=== PATIENT | female | born 1965 | race Caucasian/White ===

== ENCOUNTER 2021-10-11 03:46 | Outpatient (CLI) | payer OTHER, SELFPAY ==
[2021-10-11 13:11] LABS: Source Nasal/Nares
[2021-10-11 15:55] LABS: COVID-19 PCR Negative (Negative)
== END 2021-10-11 03:47 | disposition home or self-care (01) ==
LOC: LBO 03:46
PROVIDERS: PCP Family Medicine; Visit Provider Ophthalmology
DX: Z20.822 Contact with and (suspected) exposure to COVID-19 (principal)
CPT/HCPCS: 87635

== ENCOUNTER 2021-10-14 07:00 | Day surgery (SDC) | payer OTHER, SELFPAY ==
[2021-10-14] MEDS: Tropicam./Phenyleph. (1/2.5%) 5 ML BTL OD ×3 (07:27→07:38)
[2021-10-14 07:29] VITALS: BP 116/63; PULSE 78; RESP 16; TEMP 36.5; O2SAT 99
--- NOTE | 2021-10-14 07:33 | W.ANESPRE ---
General Info Date of Service Date Performed: 10/14/21 Height: 5 ft 4 in Weight: 71.8 kg Body Mass Index (BMI): 27.1 Surgical Procedure: Operation Date: 10/14/21 08:40 Proposed Procedures Side Surgeon p Cataract Extraction with IOL Implant Right Tommy Baig MD Meds Allergies and Home Medications Allergies Allergy/AdvReac Type Severity Reaction Status Date / Time No Known Allergies Allergy Unverified 10/14/21 07:25 Home Medication Medication Instructions Recorded clobetasol 1 applic TOPICAL BID PRN 10/11/21 triamcinolone acetonide 1 applic TOPICAL TID PRN 10/11/21 Current Visit Medications: Current Medications Generic Name Dose Route Start Last Admin Trade Name Freq PRN Reason Stop Dose Admin Acetaminophen 1,000 mg 10/14/21 06:00 Acetaminophen 500 Mg Tab PO Q4H PRN PRN Miscellaneous Medication 0 ml 10/14/21 06:00 Prednisolone 1%, Moxifloxacin 0.5%, Nepafenac 0.1% 5ml Btl OD DIRECTED NORAH Miscellaneous Medication 0 ml 10/14/21 06:00 10/14/21 07:27 Tropicam./Phenyleph. (1/2.5%) 5 Ml Btl OD 1 drp DIRECTED NORAH Administration Tetracaine HCl 0 ml 10/14/21 06:00 Tetracaine 0.5% 4 Ml Btl OD DIRECTED NORAH PFSH Active Problems Active Problems: Problem Status Onset Code Astigmatism of right eye H52.201 Posterior subcapsular age-related cataract, right eye H25.041 Medical History Active Problem List Astigmatism of right eye (Acute) Posterior subcapsular age-related cataract, right eye (Acute) Medical History DUB (dysfunctional uterine bleeding) Eczema Onychomycosis Vitamin D deficiency Surgical History Surgical History History of dilation and curettage History of excision of pilonidal cyst History of tubal ligation Hx of section Tobacco Smoking/Tobacco Use Status: Never Alcohol Alcohol Intake: current Alcohol intake frequency: a few times a week Substance Use Substance use type: does not use Vital Signs and Lab Results Vital Signs Most Recent Vital Signs in EMR: Most Recent Vital Signs Temp Pulse Resp BP Pulse Ox 36.5 C 78 16 116/63 99 10/14/21 07:29 10/14/21 07:29 10/14/21 07:29 10/14/21 07:29 10/14/21 07:29 Lab Results Blood Type / Crossmatch: No Data to Display Complete Blood Count: No Data to Display Complete Metabolic Panel: No Data to Display Liver Function Panel: No Data to Display Coagulation Panel: No Data to Display Cardiac Panel: No Data to Display Arterial Blood Gas: No Data to Display Venous Blood Gas: No Data to Display Pancreas Panel: No Data to Display Thyroid Panel: No Data to Display Infectious Disease: Coronavirus (COVID-19)(PCR) Negative (Negative) 10/11/21 11:11 10/11/21 Coronavirus 2019 Source Nasal/Nares 10/11/21 11:11 10/11/21 Blood Cultures: No Data to Display Toxicology Panel: No Data to Display Panel: No Data to Display Anesthesia Assessment and Plan Anesthesia History Personal History: No History of Anesthesia Complications Family History: No Family History of Anesthesia Complications Exercise Tolerance Exercise Tolerance: Metabolic Equivalents>4 Pertinent Negatives Pertinent Negatives: No Symptoms of GERD, No Major Cardiovascular Symptoms or Complaints and No Major Pulmonary Symptoms or Complaints Cardiac & Pulmonary Exam Cardiac Exam: Normal S1/S2 Heart Sounds Pulmonary Exam: Clear Bilateral Breath Sounds Implantable Cardiac Device Does patient have a Pacemaker or an ICD?: No Airway Exam Known Difficult Airway: No Mallampati Class: 1 Mouth Opening: Normal (> 3cm) Thyromental Distance: Greater than 3 cm Neck Range of Motion: Full ROM Neck Circumference: Normal Teeth Condition: Normal Dentition ASA Classification ASA Score: ASA 2 Emergency Case?: No NPO Status NPO Status: NPO Clears >2 hours, Solids >8 hours Status Status: Not Per Patient Anesthesia Plan Resuscitation Status: Full Code Anesthesia Technique: MAC Anesthesia Airway Planned: Natural Airway Monitors Used: Standard Monitors
[2021-10-14 07:53] VITALS: BMI 27.1
[2021-10-14] MEDS: Lidocaine 2% Jelly 6 ML SYR (08:04)
[2021-10-14] MEDS: Tetracaine 0.5% 4 ML BTL OD (08:04)
[2021-10-14] MEDS: Povidone-Iodine Ophth 30 ML BTL (08:04)
[2021-10-14] MEDS: Balanced Salt Soln.-PLUS 500 ML BAG (08:17)
[2021-10-14] MEDS: Duovisc Viscoelastic System EACH 1 EACH (08:17)
[2021-10-14 08:43] VITALS: BP 106/55; PULSE 72; RESP 16; TEMP 36.4; O2SAT 100
--- NOTE | 2021-10-14 08:44 | W.PM.DSUDISC ---
Discharge Plan Disposition Patient Disposition: HOME Condition: Good Discharge Details Attending Provider: Tommy Baig Primary Care Provider: Vivian Murray Home Meds and New Rx's Prescriptions: No Action clobetasol 0.05 % Cream 1 applic TOPICAL BID PRNRF: 0 triamcinolone acetonide 0.1 % Ointment 1 applic TOPICAL TID PRNRF: 0 Discharge Instructions Stand Alone Forms: Post-op Topical Cataract, Eliana Julio (DSU) Discharge Orders Discharge Orders: Discharge Order (Routine); Ordered 10/14/21 Ordered By: Tommy Baig DS: Diagnosis Discharge Diagnosis (1) Astigmatism of right eye: Status: Chronic (2) Posterior subcapsular age-related cataract, right eye: Status: Resolved
--- NOTE | 2021-10-14 08:45 | W.PM.OP ---
Date of service: 10/14/21 Time of Service: 08:45 Operative Note Operative Note DATE OF PROCEDURE: 10/14/21 PRE-OP DIAGNOSIS: Dense posterior subcapsular cataract, right eye With the rule astigmatism, right eye POST-OP DIAGNOSIS: same PROCEDURE: Cataract extraction using phacoemulsification with toric intraocular lens implant, right eye SURGEON: Tommy Baig Refer to Anesthesia Record PATHOLOGY: none sent COMPLICATIONS: None Patient was transported to: same day Patient's condition: stable Implants: Manohar [employer] / [employer] ZCU Toric Intraocular Lens Indications: Progressive decreased vision due to cataract, right eye, with corneal astigmatism Procedure Description: [] CATARACT SURGERY OPERATIVE REPORT PREOPERATIVE DIAGNOSIS: Dense posterior subcapsular cataract, right eye With the rule astigmatism, right eye POSTOPERATIVE DIAGNOSIS: Same OPERATION: Cataract extraction using phacoemulsification with posterior chamber toric intraocular lens implant, right eye. IOL: IOL Java [employer] Developer/Model: [employer] / IGNACIO [employer]ecnis ZCU 300 IOL Power: + 8.5 diopters sphere, 3.0 cylinder IOL Serial Number: [id number] Optic Diameter: 6.0mm Haptic/Overall Diameter: 13.00mm PHACO INFO: Karl [employer] Vision System with OZil and Active Fluidics Cumulative Dispersed Energy (CDE): 3.73 seconds SURGEON: Tommy Baig MD, DORI ANESTHESIA: Monitored Anesthesia Care (MAC), with local sub-tenon's anesthetic infiltration COMPLICATIONS: None SPECIMENS: None INDICATIONS FOR PROCEDURE: The patient is a 56-year-old lady with history of significant with the rule a stigmatism and high myopia. She has a long history of contact lens wear. She has developed a significant posterior subcapsular cataract and desires cataract surgery and attempt to improve and maximize her vision. The option of cataract surgery with a toric intraocular lens implant was offered to the patient and she wished to proceed. PROCEDURE: The correct surgical eye was identified and marked as the right eye and the pupil was dilated in the preoperative area using mydriatics and cycloplegics. The dilated pupil size was 8.5 mm. A surgical marker was used to make a reference glory at the 6 o'clock position at the limbus. She elected to proceed without oral sedation. The patient was brought to the operating room where cardiopulmonary monitoring was instituted and surgical time-out was performed, confirming the correct operative eye and IOL power. Topical anesthesia was administered and ophthalmic povidone-iodine 5% was instilled into the conjunctival fornices. Lidocaine gel was applied to the cornea and the minnie-ocular area was prepped with Betadine 10% solution and draped in the usual sterile fashion for intraocular surgery, including an aperture drape. A Tegaderm transparent film dressing was cut in half and used to cover the lashes and lid margins. Care was taken to sequester the lashes and lid margins under the Tegaderm dressing. A lid speculum was placed between the lids of the operative eye and the Ravindra-Rowena operating microscope was maneuvered into position. Kennedi scissors were then used to make a conjunctival buttonhole approximately 6mm posterior to the limbus in the inferonasal quadrant. Blunt dissection was carried out to expose bare sclera, and a blunt-tipped sub-tenon?s anesthesia cannula was introduced and passed posteriorly along the globe where non-preserved plain lidocaine was injected into posterior sub-Tenon?s space. A corneal ring gauge and axis marker were then used to glory the 106 degree axis for alignment of the toric IOL. Originally, the phaco incision was intended for the 106 degree axis, but access was challenging, so the phaco incision was at approximately the 120 degree position. A sideport knife was used to make a paracentesis port at the 7:00 postion and the anterior chamber was filled with viscoelastic.. A 2.4mm keratome knife was used to create a half-thickness groove at the limbus and then to construct a three-plane near-clear corneal tunnel extending 2.0mm into clear cornea at the 120 degree axis. . A flap was raised on the anterior capsule and capsulorhexis forceps were used to complete a continuous curvilinear capsulorhexis of 5.0 mm. The anterior chamber was noted to be very deep. Balanced salt solution was then used to perform cortical cleaving hydrodissection and nuclear hydrodelineation until the lens could be freely rotated within the capsular bag. The lens nucleus was then disassembled and removed within the capsular bag and iris plane using phacoemulsification. Residual cortical material was removed using the 45-degree angled silicone I/A tip with 0.3mm port. The posterior capsule was carefully polished to remove as much residual lens epithelial cells as safely possible. The capsular bag was then inflated and the anterior chamber deepened with viscoelastic. The lens implant described above was inserted into the capsular bag using the IGNA[employer]IO [place] Injector. A Kuglen hook was used to dial the IOL into position, about 10 degrees counterclockwise of its final alignment. Residual viscoelastic was then removed first from posterior to the IOL, then from the anterior chamber using the I/A handpiece. The I/A handpiece was then used to dial the IOL to the target axis. The lens implant was noted to center nicely within the capsular bag, with the toric IOL sandhu aligned at the 106 degree axis. The incisions were stromally hydrated, and the anterior chamber was reformed using BSS. Then 0.4cc of moxifloxacin 1.5mg/ml were injected into the capsular bag and anterior chamber. The incisions were checked with a Weck spear and found to be secure. Several drops of ophthalmic povidone-iodine 5% were then applied to the eye followed by two drops of Imprimis combination gatifloxacin/dexamethasone solution. The drapes were removed and a clear plastic protective eye shield was placed over the eye. The patient was then returned to Same Day Surgery in stable condition.
--- NOTE | 2021-10-14 09:27 | W.ANESPOSTOP ---
Postoperative Evaluation Date, Time and Location Date Performed: 10/14/21 Time Performed: 08:48 Patient Location: Day Surgery Unit Vital Signs Most Recent Imported Vital Signs: Most Recent Vital Signs Temp Pulse Resp BP Pulse Ox 36.4 C L 72 16 106/55 L 100 10/14/21 08:43 10/14/21 08:43 10/14/21 08:43 10/14/21 08:43 10/14/21 08:43 Pain Score Most Recent Pain Score: Most Recent Pain Score Pain Level 0 10/14/21 08:43 Assessment Mental Status: Awake (Alert & Oriented to Patient Baseline) Airway and Respiratory Function: Patent airway with normal (patient baseline) respiratory exam Cardiovascular Function: Hemodynamically Stable Hydration Status: Adequately Hydrated Nausea & Vomiting: No Nausea or Vomiting Pain: Pt. Denies Any Pain Peripheral Nerve Block: Patient did not receive a nerve block
== END 2021-10-14 09:20 | disposition home or self-care (01) ==
PROVIDERS: PCP Family Medicine; Visit Provider Ophthalmology
PROC: (CPT 66984; principal; 2021-10-14 08:30)
DX: H25.041 Posterior subcapsular polar age-related cataract, right eye (principal); H52.01 Hypermetropia, right eye
CPT/HCPCS: 66984; V2632

== ENCOUNTER 2022-01-03 03:44 | Outpatient (CLI) | payer OTHER, SELFPAY ==
[2022-01-04 12:19] LABS: COVID-19 RT-PCR UVMMC Result Negative (Negative)
== END 2022-01-03 03:45 | disposition home or self-care (01) ==
LOC: LBO 03:44
PROVIDERS: PCP Family Medicine; Visit Provider Ophthalmology
DX: Z20.822 Contact with and (suspected) exposure to COVID-19 (principal)
CPT/HCPCS: 87635; U0003

== ENCOUNTER 2022-01-06 06:38 | Day surgery (SDC) | payer OTHER, SELFPAY ==
[2022-01-06 06:49] VITALS: BP 105/69; PULSE 80; RESP 16; TEMP 36.5; O2SAT 98
--- NOTE | 2022-01-06 06:54 | W.PREOPHP ---
Assessment and Plan Assessment and plan (1) Astigmatism of left eye: Status: Acute Assessment and plan: Assessment: Significant with the rule a stigmatism of the left eye. Plan: Implantation of toric intraocular lens implant of the left eye. (2) Posterior subcapsular age-related cataract of left eye: Status: Acute Assessment and plan: Assessment: Visually significant posterior subcapsular cataract of the left eye. Plan: Cataract extraction with implantation of a toric intraocular lens implant of the left eye. History of Present Illness History of Present Illness Chief Complaint: Progressive decreased vision, left eye Narrative: The patient is a 56-year-old lady with history of progressive decreased vision in both eyes secondary to the development of bilateral posterior subcapsular cataract. Right eye worse than left eye. She also has a significant amount of with the rule a stigmatism. She underwent cataract surgery in the right eye on 10/14/2021. Postoperatively she is doing well and now presents for cataract surgery of the left eye. Review of Systems All systems reviewed & are unremarkable except as noted in HPI and below PFSH All Active Problems (Updated 01/06/22 @ 06:59 by Tommy Baig MD) Posterior subcapsular age-related cataract of left eye (Acute) Astigmatism of left eye (Acute) Astigmatism of right eye (Chronic) Medical History DUB (dysfunctional uterine bleeding) Eczema Onychomycosis Vitamin D deficiency Surgical History History of dilation and curettage History of excision of pilonidal cyst History of tubal ligation Hx of cataract surgery Hx of section Social History Smoking/Tobacco Use Status: Never Smoking risk assessment performed?: Yes Alcohol Intake: current Alcohol Intake frequency: a few times a week Drug use: Never Substance use type: does not use Do you feel safe at home: Yes Do you feel safe in your relationship?: Yes Meds Allergies and Home Medications Allergies Allergy/AdvReac Type Severity Reaction Status Date / Time No Known Allergies Allergy Unverified 01/06/22 06:48 Home Medications Medication Instructions Recorded Confirmed Type clobetasol 0.05 % topical cream 1 applic TOPICAL BID PRN 10/11/21 01/06/22 History triamcinolone acetonide 0.1 % 1 applic TOPICAL TID PRN 10/11/21 01/06/22 History topical ointment Exam Eyes Other: Slit-lamp examination reveals a well-positioned PCIOL in the right eye with clear posterior. The left eye shows a significant posterior subcapsular cataract. Sclera, conjunctiva, cornea, anterior chamber, and iris are all within normal limits. Dilated funduscopic examination reveals normal appearing optic nerves with normal vessels, macula, peripheral retina and vitreous. Resp Auscultation: clear to auscultation bilaterally Cardio Rate: regular rate Rhythm: regular rhythm
[2022-01-06] MEDS: Tropicam./Phenyleph. (1/2.5%) 5 ML BTL OS ×3 (06:56→07:10)
--- NOTE | 2022-01-06 07:03 | W.ANESPRE ---
General Info Date of Service Date Performed: 01/06/22 Height: 5 ft 4 in Weight: 73.4 kg Body Mass Index (BMI): 27.8 Surgical Procedure: Operation Date: 01/06/22 07:40 Proposed Procedure Side Surgeon p Cataract Extraction with IOL Implant Left Tommy Baig MD Meds Allergies and Home Medications Allergies Allergy/AdvReac Type Severity Reaction Status Date / Time No Known Allergies Allergy Unverified 01/06/22 06:48 Home Medication Medication Instructions Recorded clobetasol 0.05 % topical cream 1 applic TOPICAL BID PRN 10/11/21 triamcinolone acetonide 0.1 % 1 applic TOPICAL TID PRN 10/11/21 topical ointment Current Visit Medications: Current Medications Generic Name Dose Route Start Last Admin Trade Name Freq PRN Reason Stop Dose Admin Acetaminophen 1,000 mg 01/06/22 06:00 Acetaminophen 500 Mg Tab PO Q4H PRN PRN Miscellaneous Medication 0 ml 01/06/22 06:00 Prednisolone 1%, Moxifloxacin 0.5%, Nepafenac 0.1% 5ml Btl OS DIRECTED NORAH Miscellaneous Medication 0 ml 01/06/22 06:00 01/06/22 07:03 Tropicam./Phenyleph. (1/2.5%) 5 Ml Btl OS 1 drp DIRECTED NORAH Administration Tetracaine HCl 0 ml 01/06/22 06:00 Tetracaine 0.5% 4 Ml Btl OS DIRECTED NORAH PFSH Active Problems Active Problems: Problem Status Onset Code Posterior subcapsular age-related cataract of left eye H25.042 Astigmatism of left eye H52.202 Posterior subcapsular age-related cataract, right eye H25.041 Astigmatism of right eye H52.201 Medical History Medical History DUB (dysfunctional uterine bleeding) Eczema Onychomycosis Vitamin D deficiency Surgical History Surgical History History of dilation and curettage History of excision of pilonidal cyst History of tubal ligation Hx of cataract surgery Hx of section Tobacco Smoking/Tobacco Use Status: Never Alcohol Alcohol Intake: current Alcohol intake frequency: a few times a week Substance Use Substance use: Never Substance use type: does not use Vital Signs and Lab Results Vital Signs Most Recent Vital Signs in EMR: Most Recent Vital Signs Temp Pulse Resp BP Pulse Ox 36.5 C 80 16 105/69 98 01/06/22 06:49 01/06/22 06:49 01/06/22 06:49 01/06/22 06:49 01/06/22 06:49 Lab Results Blood Type / Crossmatch: No Data to Display Complete Blood Count: No Data to Display Complete Metabolic Panel: No Data to Display Liver Function Panel: No Data to Display Coagulation Panel: No Data to Display Cardiac Panel: No Data to Display Arterial Blood Gas: No Data to Display Venous Blood Gas: No Data to Display Pancreas Panel: No Data to Display Thyroid Panel: No Data to Display Infectious Disease: Coronavirus (COVID-19)(PCR) Negative (Negative) 01/03/22 09:08 01/03/22 Blood Cultures: No Data to Display Toxicology Panel: No Data to Display Panel: No Data to Display Anesthesia Assessment and Plan Anesthesia History Personal History: No History of Anesthesia Complications Family History: No Family History of Anesthesia Complications Exercise Tolerance Exercise Tolerance: Metabolic Equivalents>4 Pertinent Negatives Pertinent Negatives: No Symptoms of GERD, No Major Cardiovascular Symptoms or Complaints, No Major Pulmonary Symptoms or Complaints and No History of CVA/TIA Cardiac & Pulmonary Exam Cardiac Exam: Normal S1/S2 Heart Sounds Pulmonary Exam: Clear Bilateral Breath Sounds Implantable Cardiac Device Does patient have a Pacemaker or an ICD?: No Airway Exam Known Difficult Airway: No Mallampati Class: 1 Mouth Opening: Normal (> 3cm) Thyromental Distance: Greater than 3 cm Neck Range of Motion: Full ROM Neck Circumference: Normal Teeth Condition: Normal Dentition ASA Classification ASA Score: ASA 2 Emergency Case?: No NPO Status NPO Status: NPO Clears >2 hours, Solids >8 hours Status Status: Not Per Patient Anesthesia Plan Resuscitation Status: Full Code Anesthesia Technique: MAC Anesthesia Airway Planned: Natural Airway Monitors Used: Standard Monitors
[2022-01-06 07:08] VITALS: BMI 27.8
[2022-01-06] MEDS: Balanced Salt Soln.-PLUS 500 ML BAG (07:40)
[2022-01-06] MEDS: Povidone-Iodine Ophth 30 ML BTL (07:43)
[2022-01-06] MEDS: Duovisc Viscoelastic System EACH 1 EACH (07:43)
[2022-01-06] MEDS: Lidocaine 2% Jelly 6 ML SYR (07:44)
[2022-01-06] MEDS: Tetracaine 0.5% 4 ML BTL OS (07:46)
[2022-01-06 08:01] VITALS: BP 110/67; PULSE 73; RESP 16; TEMP 36.5; O2SAT 99
--- NOTE | 2022-01-06 08:04 | W.PM.DSUDISC ---
Discharge Plan Disposition Patient Disposition: HOME Condition: Good Discharge Details Attending Provider: Tommy Baig Primary Care Provider: Vivian Murray Home Meds and New Rx's Prescriptions: No Action clobetasol 0.05 % Cream 1 applic TOPICAL BID [id number] triamcinolone acetonide 0.1 % Ointment 1 applic TOPICAL TID [id number] Discharge Instructions Stand Alone Forms: Post-op Topical Cataract, Eliana Ganey (DSU) Discharge Orders Discharge Orders: Discharge Order (Routine); Ordered 01/06/22 Ordered By: Tommy Baig DS: Diagnosis Discharge Diagnosis (1) Posterior subcapsular age-related cataract of left eye: Status: Suspected (2) Astigmatism of left eye: Status: Chronic
--- NOTE | 2022-01-06 08:04 | W.ANESPOSTOP ---
Postoperative Evaluation Date, Time and Location Date Performed: 01/06/22 Time Performed: 08:04 Patient Location: Day Surgery Unit Vital Signs Most Recent Imported Vital Signs: Most Recent Vital Signs Temp Pulse Resp BP Pulse Ox 36.5 C 80 16 105/69 98 01/06/22 06:49 01/06/22 06:49 01/06/22 06:49 01/06/22 06:49 01/06/22 06:49 Most Recent Manually Entered Vital Signs: Adult Blood Pressure: 110/67 Heart Rate: 73 Respirations: 12 Oxygen Saturation (%): 98 Temperature (C): 36.3 C Pain Score (0-10 Scale): 0 Pain Score Most Recent Pain Score: Most Recent Pain Score Pain Level 0 01/06/22 06:49 Assessment Mental Status: Awake (Alert & Oriented to Patient Baseline) Airway and Respiratory Function: Patent airway with normal (patient baseline) respiratory exam Cardiovascular Function: Hemodynamically Stable Hydration Status: Adequately Hydrated Nausea & Vomiting: No Nausea or Vomiting Pain: Pt. Denies Any Pain Peripheral Nerve Block: Patient did not receive a nerve block
[2022-01-06 08:05] VITALS: BP 110/67; PULSE 73; RESP 12; TEMPC 36.3; O2SAT 98
--- NOTE | 2022-01-06 08:07 | W.PM.OP ---
Date of service: 01/06/22 Time of Service: 08:07 Operative Note Operative Note DATE OF PROCEDURE: 01/06/22 PRE-OP DIAGNOSIS: Posterior subcapsular cataract, left eye Myopia and high [id number] astigmatism, left eye Status post cataract extraction with lens implantation, right eye with toric intraocular lens POST-OP DIAGNOSIS: same PROCEDURE: Cataract extraction using phacoemulsification with toric intraocular lens implant, left eye SURGEON: Tommy Baig ANESTHESIA TYPE: Local By Surgeon and MAC Refer to Anesthesia Record PATHOLOGY: none sent COMPLICATIONS: None Patient was transported to: same day Patient's condition: stable Implants: [employer] / [employer] ZCT Toric Intraocular Lens Indications: Progressive decreased vision due to cataract, left eye, with corneal astigmatism Procedure Description: CATARACT SURGERY OPERATIVE REPORT PREOPERATIVE DIAGNOSIS: Posterior subcapsular cataract, left eye Myopia and high with the rule astigmatism, left eye Status post cataract extraction with toric intraocular lens implantation, right eye POSTOPERATIVE DIAGNOSIS: Same OPERATION: Cataract extraction using phacoemulsification with posterior chamber toric intraocular lens implant, left eye. IOL: IOL Dough Cutter/Model: [employer] / [employer]IO Tecnis ZCU 450 IOL Power: + 9.0 diopters sphere, 4.50 cylinder IOL Serial Number: [id number] Optic Diameter: 6.0mm Haptic/Overall Diameter: 13.00mm PHACO INFO: [employer] Vision System with OZil and [employer] Cumulative Dispersed Energy (CDE): 0.92 seconds SURGEON: Tommy Baig MD, DORI ANESTHESIA: Monitored Anesthesia Care (MAC), with local sub-tenon's anesthetic infiltration COMPLICATIONS: None SPECIMENS: None INDICATIONS FOR PROCEDURE: The patient is a 56-year-old lady with history of myopia and significant with the rule astigmatism. She developed a significant posterior subcapsular cataract in the right eye, with a more moderate cataract in the left eye. She has already undergone cataract surgery with a toric intraocular lens implantation in the right eye in October 2021. 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 Cataract is milder in the left eye, but due to the significant anisometropic symptoms she desires cataract surgery and attempt to improve and maximize her vision with a toric intraocular lens implant in the left eye. PROCEDURE: The correct surgical eye was identified and marked as the left eye and the pupil was dilated in the preoperative area using mydriatics and cycloplegics. The dilated pupil size was 8.0 mm. With the patient in the seated position, topical anesthetic was applied and a surgical marker was used to glory the limbus at 6:00. A Surgilum Robomarker was then used to glory the 0/180 degree reference axis. She elected to proceed without oral sedation.The patient was brought to the operating room where cardiopulmonary monitoring was instituted and surgical time-out was performed, confirming the correct operative eye and IOL power. Topical anesthesia was administered and ophthalmic povidone-iodine 5% was instilled into the conjunctival fornices. Lidocaine gel was applied to the cornea and the minnie-ocular area was prepped with Betadine 10% solution and draped in the usual sterile fashion for intraocular surgery, including an aperture drape. A Tegaderm transparent film dressing was cut in half and used to cover the lashes and lid margins. Care was taken to sequester the lashes and lid margins under the Tegaderm dressing. A lid speculum was placed between the lids of the operative eye and the Ravindra-Rowena operating microscope was maneuvered into position. Kennedi scissors were then used to make a conjunctival buttonhole approximately 6mm posterior to the limbus in the inferonasal quadrant. Blunt dissection was carried out to expose bare sclera, and a blunt-tipped sub-tenon?s anesthesia cannula was introduced and passed posteriorly along the globe where non-preserved plain lidocaine was injected into posterior sub-Tenon?s space. A corneal ring gauge and axis marker were then used to glory the 349degree position for the main phaco incision, and the 79 degree axis for alignment of the toric IOL. A sideport knife was used to make a paracentesis port superior/superiortemporally. Intraocular phenylephrine/lidocaine was injected into the anterior chamber. The anterior chamber was then filled with viscoelastic. A 2.4mm keratome knife was used to create a half-thickness groove at the limbus and then to construct a three-plane near-clear corneal tunnel extending 2.0mm into clear cornea at the 349 degree axis. . A flap was raised on the anterior capsule and capsulorhexis forceps were used to complete a continuous curvilinear capsulorhexis of 5.0 mm. Balanced salt solution was then used to perform cortical cleaving hydrodissection and nuclear hydrodelineation until the lens could be freely rotated within the capsular bag. The lens nucleus was then disassembled and removed within the capsular bag and iris plane using phacoemulsification. Residual cortical material was removed using the 45-degree angled silicone I/A tip with 0.3mm port. The posterior capsule was carefully polished to remove as much residual lens epithelial cells as safely possible. The capsular bag was then inflated and the anterior chamber deepened with viscoelastic. The lens implant described above was inserted into the capsular bag using the [employer] [place] Injector. A Kuglen hook was used to dial the IOL into position, about 10 degrees counterclockwise of its final alignment. Residual viscoelastic was then removed first from posterior to the IOL, then from the anterior chamber using the I/A handpiece. The I/A handpiece was then used to dial the IOL to the target axis. The lens implant was noted to center nicely within the capsular bag, with the toric IOL sandhu aligned at the 79 degree axis. The incisions were stromally hydrated, and the anterior chamber was reformed using BSS. Then 0.5cc of moxifloxacin 1.0mg/ml were injected into the capsular bag and anterior chamber. The incisions were checked with a Weck spear and found to be secure. Several drops of ophthalmic povidone-iodine 5% were then applied to the eye followed by two drops of Imprimis combination prednisolone/moxifloxacin/nepafenac solution. The drapes were removed and a clear plastic protective eye shield was placed over the eye. The patient was then returned to [facility] in stable condition.
== END 2022-01-06 08:33 | disposition home or self-care (01) ==
PROVIDERS: PCP Family Medicine; Visit Provider Ophthalmology
PROC: (CPT 66984; principal; 2022-01-06 07:30)
DX: H25.042 Posterior subcapsular polar age-related cataract, left eye (principal); H52.202 Unspecified astigmatism, left eye
CPT/HCPCS: 66984; V2632